=== PATIENT | male | born 1965 | race Hispanic/Latino ===

== ENCOUNTER 2024-06-04 12:09 | Inpatient (IN) | payer BC ==
[~2024-06-04] VITALS: Ht 175.3 cm; Wt 92.1 kg
[2024-06-04] VITALS (10 sets, daily range): BP systolic 131–142; BP diastolic 70–78; PULSE 92–107; RESP 16–20; TEMP 98.5–99.1; O2SAT 95–97
[2024-06-04] MEDS ORDERED: Vancomycin IV 750 MG in SODIUM CHLORIDE 0.9% 100 ML IV SCH (12:45)
[2024-06-04] MEDS ORDERED: Morphine 4mg INJECTION 4 MG/ML INJ IV PRN (13:00)
[2024-06-04] MEDS: SODIUM CHLORIDE 0.9% 1000ML 1,000 ML IV SCH (13:00)
[2024-06-04] MEDS ORDERED: ONDANSETRON HCL INJ 2MG/ML 2ML 2 MG/ML VIAL IV PRN (13:00)
[2024-06-04 13:05] LABS: BASOPHILS # (AUTO) 0.1 (0.0-0.1); BASOPHILS % 0.4 % (0.0-1.0); EOSINOPHILS % 0.2 % (0.0-6.0); HEMATOCRIT 43.7 % (38.2-49.6); HEMOGLOBIN 14.2 g/dL (14.0-18.0); LYMPHOCYTES # (AUTO) 2.3 (1.0-3.2); LYMPHOCYTES % 16.6 % (18.0-39.1); MEAN CORPUSCULAR HEMOGLOBIN 30.1 pg (28-32); MEAN CORPUSCULAR HGB CONC 32.5 g/dL (31-35); MEAN CORPUSCULAR VOLUME 92.6 fL (81-99); MONOCYTES # (AUTO) 1.4 (0.2-0.8); NEUTROPHILS # (AUTO) 10.2 (2.1-6.9); NEUTROPHILS % 72.4 % (38.7-80.0); PLATELET COUNT 306 x10e3/uL (140-360); RED BLOOD COUNT 4.72 x10e6/uL (4.3-5.7); RED CELL DISTRIBUTION WIDTH 14.4 % (11.7-14.4)
[2024-06-04] MEDS: LACTATED RINGER'S 1,000 ML INJ ONE (13:17)
[2024-06-04] MEDS: Morphine 4mg INJECTION 4 MG/ML INJ IV ONE (13:17)
[2024-06-04] MEDS: Vancomycin IV 1 GM in SODIUM CHLORIDE 0.9% 250ML 250 ML IV ONE (13:18)
[2024-06-04 13:35] LABS: ALBUMIN 3.7 g/dL (3.5-5.0); ALBUMIN/GLOBULIN RATIO 0.7 (0.8-2.0); ANION GAP 17.2 mmol/L (8-16); BILIRUBIN,TOTAL 0.9 mg/dL (0.2-1.2); CALCIUM 9.2 mg/dL (8.4-10.2); CREATININE, SERUM 0.93 mg/dL (0.72-1.25); POTASSIUM 4.2 mmol/L (3.5-5.1); TOTAL PROTEIN 8.7 g/dL (6.5-8.1)
[2024-06-04] MEDS ORDERED: GLIPIZIDE5 MG PO (14:06)
[2024-06-04] MEDS ORDERED: METFORMIN HCL850 MG PO (14:06)
[2024-06-04] MEDS ORDERED: BENICAR20 MG PO (15:11)
[2024-06-04] MEDS ORDERED: DEXTROSE 50% SYRINGE 50 ML IV PRN (17:15)
[2024-06-04] MEDS: INSULIN LISPRO 100 UNIT/1 ML 3ML VIAL SQ SCH (20:14)
[2024-06-05] VITALS (8 sets, daily range): BP systolic 131–147; BP diastolic 67–77; PULSE 85–90; RESP 17–20; TEMP 98.4–99.3; O2SAT 95–97
[2024-06-05 07:01] LABS: BASOPHILS # (AUTO) 0.1 (0.0-0.1); BASOPHILS % 0.4 % (0.0-1.0); EOSINOPHILS # (AUTO) 0.1 (0.0-0.4); HEMOGLOBIN 13.1 g/dL (14.0-18.0); LYMPHOCYTES # (AUTO) 3.2 (1.0-3.2); LYMPHOCYTES % 26.6 % (18.0-39.1); MEAN CORPUSCULAR HEMOGLOBIN 30.7 pg (28-32); MEAN CORPUSCULAR HGB CONC 32.8 g/dL (31-35); MEAN CORPUSCULAR VOLUME 93.7 fL (81-99); MONOCYTES # (AUTO) 1.3 (0.2-0.8); MONOCYTES % 11.1 % (4.4-11.3); NEUTROPHILS # (AUTO) 7.1 (2.1-6.9); NEUTROPHILS % 60.4 % (38.7-80.0); PLATELET COUNT 286 x10e3/uL (140-360); RED BLOOD COUNT 4.27 x10e6/uL (4.3-5.7); RED CELL DISTRIBUTION WIDTH 14.1 % (11.7-14.4); WHITE BLOOD COUNT 11.84 x10e3/uL (4.8-10.8)
[2024-06-05 07:24] LABS: ANION GAP 13.9 mmol/L (8-16); CALCIUM 8.5 mg/dL (8.4-10.2); CREATININE, SERUM 0.76 mg/dL (0.72-1.25); POTASSIUM 3.9 mmol/L (3.5-5.1)
[2024-06-05] MEDS: TETANUS/DIPHTHERIA TOX ADULT 0.5 ML SYR IM ONE (08:32)
[2024-06-05] MEDS ORDERED: BETAMETHASONE DISODIUM PHOS 6 MG/ML VIAL IM ONE (12:15)
[2024-06-05] MEDS ORDERED: BUPIVACAINE HCL 0.5% INJ 30 ML VIAL INJ ONE (12:15)
[2024-06-05] MEDS ORDERED: LIDOCAINE HCL 1% LOCAL INJ 20 ML VIAL INJ ONE (12:15)
[2024-06-05] MEDS: Vancomycin IV 1 GM in SODIUM CHLORIDE 0.9% 250ML 250 ML IV SCH (14:03)
[2024-06-05] MEDS: BUPIVACAINE HCL 0.5% INJ 30 ML VIAL INJ ONE (14:58)
[2024-06-05] MEDS: BETAMETHASONE DISODIUM PHOS 6 MG/ML VIAL IM ONE (14:58)
[2024-06-05] MEDS: MUPIROCIN 2% OINT 22 GM TUBE TOP ONE (14:58)
[2024-06-05] MEDS: LIDOCAINE HCL 1% LOCAL INJ 20 ML VIAL INJ ONE (14:59)
[2024-06-05] MEDS: ACETAMINOPHEN 325 MG TAB PO PRN (21:59)
[2024-06-06] VITALS (8 sets, daily range): BP systolic 132–159; BP diastolic 75–88; PULSE 79–91; RESP 18–20; TEMP 97.8–98.9; O2SAT 95–100
[2024-06-06 07:05] LABS: BASOPHILS # (AUTO) 0.1 (0.0-0.1); BASOPHILS % 0.6 % (0.0-1.0); EOSINOPHILS # (AUTO) 0.2 (0.0-0.4); EOSINOPHILS % 1.8 % (0.0-6.0); HEMOGLOBIN 12.8 g/dL (14.0-18.0); LYMPHOCYTES # (AUTO) 2.7 (1.0-3.2); LYMPHOCYTES % 27.1 % (18.0-39.1); MEAN CORPUSCULAR VOLUME 93.7 fL (81-99); MONOCYTES # (AUTO) 1.1 (0.2-0.8); MONOCYTES % 10.9 % (4.4-11.3); NEUTROPHILS % 59.2 % (38.7-80.0); PLATELET COUNT 288 x10e3/uL (140-360); RED BLOOD COUNT 4.27 x10e6/uL (4.3-5.7); WHITE BLOOD COUNT 10.05 x10e3/uL (4.8-10.8)
[2024-06-06 07:33] LABS: ANION GAP 13.9 mmol/L (8-16); CALCIUM 9.1 mg/dL (8.4-10.2); CREATININE, SERUM 0.75 mg/dL (0.72-1.25); POTASSIUM 3.9 mmol/L (3.5-5.1)
[2024-06-07] VITALS (9 sets, daily range): BP systolic 127–163; BP diastolic 80–93; PULSE 78–87; RESP 17–20; TEMP 97.6–98.6; O2SAT 95–98
[2024-06-07] MEDS: LOSARTAN POTASSIUM 100 MG TAB PO SCH (09:13)
[2024-06-07] MEDS: MUPIROCIN 2% OINT 22 GM TUBE TOP SCH (22:07)
[2024-06-08 04:00] VITALS: BP 141/84; PULSE 85; RESP 20; TEMP 98.1; O2SAT 99
[2024-06-08 07:47] VITALS: BP 130/77; PULSE 84; RESP 17; TEMP 97.8; O2SAT 96
[2024-06-08 09:10] VITALS: BP 130/77; PULSE 84; RESP 17; TEMP 97.8; O2SAT 96
[2024-06-08 11:42] VITALS: BP 145/83; PULSE 82; RESP 19; TEMP 98.3; O2SAT 98
[2024-06-08 15:52] VITALS: BP 126/86; PULSE 76; RESP 17; TEMP 98.6; O2SAT 98
[2024-06-08 20:00] VITALS: BP 122/73; PULSE 76; RESP 18; TEMP 98.3; O2SAT 97
[2024-06-09] VITALS (7 sets, daily range): BP systolic 109–148; BP diastolic 71–80; PULSE 71–79; RESP 16–20; TEMP 97.8–99.1; O2SAT 95–99
[2024-06-09 07:15] LABS: BASOPHILS # (AUTO) 0.1 (0.0-0.1); BASOPHILS % 0.6 % (0.0-1.0); EOSINOPHILS # (AUTO) 0.2 (0.0-0.4); EOSINOPHILS % 2.2 % (0.0-6.0); HEMATOCRIT 40.5 % (38.2-49.6); HEMOGLOBIN 13.2 g/dL (14.0-18.0); LYMPHOCYTES # (AUTO) 3.2 (1.0-3.2); LYMPHOCYTES % 32.2 % (18.0-39.1); MEAN CORPUSCULAR HEMOGLOBIN 29.7 pg (28-32); MEAN CORPUSCULAR HGB CONC 32.6 g/dL (31-35); MEAN CORPUSCULAR VOLUME 91.2 fL (81-99); MONOCYTES # (AUTO) 1.1 (0.2-0.8); NEUTROPHILS # (AUTO) 5.3 (2.1-6.9); NEUTROPHILS % 53.8 % (38.7-80.0); PLATELET COUNT 338 x10e3/uL (140-360); RED BLOOD COUNT 4.44 x10e6/uL (4.3-5.7); RED CELL DISTRIBUTION WIDTH 13.8 % (11.7-14.4); WHITE BLOOD COUNT 9.84 x10e3/uL (4.8-10.8)
[2024-06-09 07:37] LABS: CALCIUM 8.7 mg/dL (8.4-10.2); CREATININE, SERUM 0.73 mg/dL (0.72-1.25)
[2024-06-09] MEDS: SODIUM CHLORIDE 0.9% 1000ML 1,000 ML IV SCH (14:00)
[2024-06-09] MEDS: LIDOCAINE HCL 1% LOCAL INJ 20 ML VIAL ONE (15:20)
[2024-06-09] MEDS: HEPARIN SOD/SOD CHLORIDE 0 ML ONE (15:20)
[2024-06-09] MEDS: VERAPAMIL HCL 2.5 MG/ML 2 ML VIAL ONE (15:21)
[2024-06-09] MEDS: HEPARIN SOD/SOD CHLORIDE 2,000 ML ONE (15:21)
[2024-06-09] MEDS: IOPAMIDOL 370 MG/ML 100 ML INFUS..BTL INJ ONE ×2 (15:21→15:22)
[2024-06-09] MEDS: HEPARIN SOD (PORCINE) 1000 UNIT/ML 30ML ONE (15:21)
[2024-06-09] MEDS: CLOPIDOGREL BISULFATE 75 MG TAB ONE (15:22)
[2024-06-09] MEDS: NITROGLYCERIN/D5W 200 MCG/ML 250 ML ONE (15:22)
[2024-06-09] MEDS: SODIUM CHLORIDE 0.9% 1000ML 2,000 ML ONE (15:22)
[2024-06-09] MEDS: MIDAZOLAM HCL 2 MG/2 ML VIAL ONE ×2 (15:22→15:23)
[2024-06-09] MEDS: FENTANYL CITRATE/PF 100MCG/2 ML INJ ONE (15:22)
[2024-06-09] MEDS: ASPIRIN 325 MG TAB ONE (15:23)
[2024-06-10] VITALS: BP 139/76; PULSE 76; RESP 18; TEMP 98.6; O2SAT 96
[2024-06-10 04:00] VITALS: BP 137/75; PULSE 78; RESP 18; TEMP 98.7; O2SAT 96
[2024-06-10] MEDS: ASPIRIN 81 MG CHEW TAB PO SCH (08:45)
[2024-06-10] MEDS: ATORVASTATIN 40 MG TAB PO SCH (08:45)
[2024-06-10] MEDS: CLOPIDOGREL BISULFATE 75 MG TAB PO SCH (08:46)
[2024-06-10 09:24] VITALS: BP 128/78; PULSE 79; RESP 17; TEMP 98.6; O2SAT 98
[2024-06-10] MEDS ORDERED: COZAAR100 MG PO (11:11)
[2024-06-10] MEDS ORDERED: ASPIRIN CHEW81 MG PO (11:11)
[2024-06-10] MEDS ORDERED: ATORVASTATIN CA40 MG PO (11:11)
[2024-06-10] MEDS ORDERED: PLAVIX75 MG PO (11:11)
[2024-06-10 13:54] VITALS: BP 148/81; PULSE 71; RESP 18; TEMP 98.7; O2SAT 100
== END 2024-06-10 14:40 | disposition home or self-care (01) | DRG 271 ==
LOC: ER 12:16 → ERHOLD 12:58 → MED/SURG3 13:32
PROVIDERS: ADMIT Internal Medicine; ATTEND Internal Medicine
PROC: 0QBP0ZX Excision of Left Metatarsal, Open Approach, Diagnostic (ICD-10-PCS; 2024-06-06)
PROC: 0QBR0ZX Excision of Left Toe Phalanx, Open Approach, Diagnostic (ICD-10-PCS; 2024-06-06)
PROC: 04CQ3ZZ Extirpation of Matter from Left Anterior Tibial Artery, Percutaneous Approach (ICD-10-PCS; principal; 2024-06-09)
PROC: 047Q0ZZ Dilation of Left Anterior Tibial Artery, Open Approach (ICD-10-PCS; 2024-06-09)
PROC: B41D1ZZ Fluoroscopy of Aorta and Bilateral Lower Extremity Arteries using Low Osmolar Contrast (ICD-10-PCS; 2024-06-09)
DX: E11.52 Type 2 diabetes mellitus with diabetic peripheral angiopathy with gangrene (principal); L03.115 Cellulitis of right lower limb; L03.116 Cellulitis of left lower limb; E11.69 Type 2 diabetes mellitus with other specified complication; M86.9 Osteomyelitis, unspecified; E11.621 Type 2 diabetes mellitus with foot ulcer; L97.518 Non-pressure chronic ulcer of other part of right foot with other specified severity; L97.528 Non-pressure chronic ulcer of other part of left foot with other specified severity; E11.40 Type 2 diabetes mellitus with diabetic neuropathy, unspecified; E11.65 Type 2 diabetes mellitus with hyperglycemia; I10 Essential (primary) hypertension; R00.0 Tachycardia, unspecified; B95.61 Methicillin susceptible Staphylococcus aureus infection as the cause of diseases classified elsewhere; F17.200 Nicotine dependence, unspecified, uncomplicated
CPT/HCPCS: 36247; 36415; 37225; 37246; 75630; 75716; 76937; 80048; 80053; 80061; 80202; 82948; 83605; 85025; 87040; 87071; 87075; 87186; 87205; 90471; 90714; 93926; 94799; 99152; 99153; 99252; 99284; C1724; C1725; C1760; C1769; C1887; C1894; J0692; J1644; J2003; J2250; J2270; J7030; J7050; Q9967